=== PATIENT | female | born 1990 | race Hispanic/Latino ===

== ENCOUNTER 2024-09-20 20:49 | Emergency (ER) | payer OTHER ==
[2024-09-20 22:41] LABS: Bacteria/HPF None Seen HPF (None Seen); Bilirubin Negative (Negative); Blood, Urine Negative (Negative); CAUTI Indications for Culture < 2yrs of age; Clarity Clear (Clear); Glucose, Urine (Dipstick) 300 mg/dL (Negative); Ketone, Urine Negative (Negative); Leukocyte Negative Leu/uL (Negative); Nitrite Negative (Negative); Protein, Urine (Dipstick) Negative (Neg-Trace); RBC/HPF 0-3 HPF (0-3); Specific Gravity, Urine 1.006 (1.002-1.036); Urobilinogen Normal mg/dL (Less than 2); WBC/HPF 0-3 HPF (0-3); pH, Urine 6.5 (5.0-9.0)
[2024-09-20 22:45] LABS: Urine Culture Reflex Yes Yes
== END 2024-09-20 22:52 | disposition short-term general hospital (02) ==
LOC: ERS 20:49
DX: O99.891 Other specified diseases and conditions complicating pregnancy (principal); R10.9 Unspecified abdominal pain; M54.50 Low back pain, unspecified; Z3A.29 29 weeks gestation of pregnancy
CPT/HCPCS: 81001; 87077; 87086; 87186; 99284